=== PATIENT | male | born 1970 | race African-American/Black ===

== ENCOUNTER 2018-05-10 14:07 | Observation (INO) | payer OTHER ==
[~2018-05-10 14:07] MED LIST: CEFAZOLIN 1 GM INJ; ONDANSETRON 4 MG INJ
[2018-05-10] MEDS ORDERED: FENTAnyl 50 MCG/ML VIAL ×2 (14:46→18:04)
[2018-05-10] MEDS ORDERED: MIDAZOLAM 1 MG/ML 2 ML INJ (14:47)
[2018-05-10] MEDS ORDERED: METOCLOPRAMIDE 10 MG INJ (14:47)
[2018-05-10 15:31] LABS: ANION GAP 11 (8-16); BLOOD UREA NITROGEN 13 mg/dl (7-20); CARBON DIOXIDE 25 mmol/L (21-31); CHLORIDE 110 mmol/L (97-110); CREATININE 0.95 mg/dl (0.61-1.24); GLUCOSE 86 mg/dl (70-220); POTASSIUM 3.8 mmol/L (3.5-5.1); SODIUM 142 mmol/L (135-144)
[2018-05-10] MEDS: POLYMYXIN/BACITRACIN 1L IRRIG IRR (17:08)
[2018-05-10] MEDS ORDERED: HYDROmorphONE 2 MG/ML SYG (18:30)
[2018-05-10] MEDS ORDERED: PROPOFOL 40 ML (19:46)
[2018-05-10] MEDS ORDERED: ROCURONIUM 50 MG INJ (19:47)
[2018-05-10] MEDS ORDERED: LIDOCAINE 2% (SDV) 5 ML INJ (19:47)
[2018-05-10] MEDS ORDERED: SUCCINYLCHOLINE CHLORIDE 100 MG/5 ML SYG IV (19:47)
[2018-05-10] MEDS ORDERED: ROPIVACAINE 0.5 % 30 ML VIAL ×2 (19:47→19:53)
[2018-05-10] MEDS ORDERED: EPINEPHrine 1 MG INJ ×2 (19:50→19:51)
[2018-05-10] MEDS ORDERED: EPINEPHrine 0.1 MG/ML SYG (19:50)
[2018-05-10] MEDS ORDERED: SUGAMMADEX SODIUM 200 MG/2 ML VIAL IV (21:05)
[2018-05-10] MEDS ORDERED: LEVALBUTEROL (NEB) 1.25 MG/0.5 ML AMP (21:14)
[2018-05-10] MEDS ORDERED: NACL 0.9% 3 ML SYG IV (21:30)
[2018-05-10] MEDS ORDERED: morphine 2 MG INJ IV (21:30)
[2018-05-10] MEDS ORDERED: HYDROCODONE/APAP (5/325) TAB PO (21:30)
[2018-05-10] MEDS ORDERED: ONDANSETRON 4 MG INJ IV (21:30)
[2018-05-10] MEDS ORDERED: LABETALOL HCL 20MG INJ (21:43)
[2018-05-10] MEDS ORDERED: HYDROmorphONE 1 MG/5 ML IV SYRINGE IV ×3 (22:00)
[2018-05-10] MEDS ORDERED: PROCHLORPERAZINE 10 MG INJ IV (22:00)
[2018-05-10] MEDS ORDERED: hydrALAzine 20 MG INJ IV (22:00)
[2018-05-10] MEDS ORDERED: MEPERIDINE 25 MG INJ IV (22:00)
[2018-05-10] MEDS ORDERED: FENTAnyl 50 MCG/ML VIAL IV ×2 (22:00)
[2018-05-10] MEDS ORDERED: MIDAZOLAM 1 MG/ML 2 ML INJ IV (22:00)
[2018-05-10] MEDS ORDERED: CEFAZOLIN 2 GM/50 ML (PMX) 50 ML IVPB (22:00)
[2018-05-10] MEDS ORDERED: METOCLOPRAMIDE 10 MG INJ IV (22:00)
[2018-05-10] MEDS ORDERED: LEVALBUTEROL (NEB) 1.25 MG/0.5 ML AMP HHN (22:00)
[2018-05-10] MEDS ORDERED: DIPHENHYDRAMINE 50 MG INJ IV (22:00)
[2018-05-10] MEDS: HEPARIN 5,000 UNIT/0.5 ML VIAL SC ×2 (22:00→23:45)
[2018-05-10] MEDS ORDERED: LORAZEPAM 2 MG INJ IV (22:00)
[2018-05-10] MEDS: ONDANSETRON 4 MG INJ IV (22:09)
[2018-05-10] MEDS: LABETALOL HCL 20MG INJ IV (22:09)
[2018-05-10] MEDS: LEVALBUTEROL (NEB) 1.25 MG/0.5 ML AMP HHN (22:14)
[2018-05-10] MEDS: IPRATROPIUM (NEB) 0.5 MG/2.5 ML AMP HHN (22:14)
[2018-05-10] MEDS: LACTATED RINGER'S 1,000 ML IV (23:38)
[2018-05-10] MEDS: HYDROCODONE/APAP (5/325) TAB PO (23:39)
[2018-05-10] MEDS: METOCLOPRAMIDE 10 MG INJ IV (23:52)
[2018-05-11] MEDS: CEFAZOLIN 2 GM/50 ML (PMX) 50 ML IVPB ×3 (01:14→16:17)
[2018-05-11] MEDS ORDERED: CEFAZOLIN 1 GM/50 ML (PMX) 50 ML IVPB (05:00)
[2018-05-11 05:08] LABS: ADD MAN DIFF? NO; BASOPHILS % 0.2 % (0.0-2.0); EOSINOPHILS % 0.2 % (0.0-7.0); HEMATOCRIT 39.7 % (42.0-52.0); HEMOGLOBIN 12.9 g/dl (14.0-18.0); LYMPHOCYTES # 1.1 10^3/ul (0.8-2.9); LYMPHOCYTES % 9.7 % (15.0-51.0); MEAN CORPUSCULAR HEMOGLOBIN 29.1 pg (29.0-33.0); MEAN CORPUSCULAR HGB CONC 32.5 g/dl (32.0-37.0); MEAN CORPUSCULAR VOLUME 89.4 fl (82.0-101.0); MEAN PLATELET VOLUME 9.5 fl (7.4-10.4); MONOCYTE # 0.8 10^3/ul (0.3-0.9); MONOCYTES % 7.6 % (0.0-11.0); NEUTROPHILS % 81.9 % (39.0-77.0); PLATELET COUNT 241 10^3/UL (140-415); RED BLOOD COUNT 4.44 10^6/ul (4.70-6.10); RED CELL DISTRIBUTION WIDTH 14.9 % (11.5-14.5)
[2018-05-11 05:08] LABS: WHITE BLOOD COUNT 10.9 10^3/ul (4.8-10.8)
[2018-05-11 05:30] LABS: HEMOGLOBIN A1C 5.4 % (0-5.9)
[2018-05-11 05:42] LABS: ALANINE AMINOTRANSFERASE 24 IU/L (13-69); ALBUMIN 3.1 g/dl (3.3-4.9); ALBUMIN/GLOBULIN RATIO 0.88; ALKALINE PHOSPHATASE 56 IU/L (42-121); ANION GAP 10 (8-16); ASPARTATE AMINO TRANSFERASE 19 IU/L (15-46); BILIRUBIN,INDIRECT 0.6 mg/dl (0-1.1); BILIRUBIN,TOTAL 0.6 mg/dl (0.2-1.3); BLOOD UREA NITROGEN 11 mg/dl (7-20); CALCIUM 8.6 mg/dl (8.4-10.2); CARBON DIOXIDE 29 mmol/L (21-31); CHLORIDE 106 mmol/L (97-110); CREATININE 0.97 mg/dl (0.61-1.24); GLUCOSE 114 mg/dl (70-220); SODIUM 141 mmol/L (135-144); TOTAL PROTEIN 6.6 g/dl (6.1-8.1)
[2018-05-11] MEDS: HEPARIN 5,000 UNIT/0.5 ML VIAL SC ×3 (06:14→21:56)
[2018-05-11] MEDS: FAMOTIDINE 20 MG TAB PO ×2 (08:55→20:47)
[2018-05-11] MEDS: morphine 2 MG INJ IV ×4 (08:58→22:50)
[2018-05-11] MEDS: ONDANSETRON 4 MG INJ IV ×3 (09:57→22:50)
[2018-05-11] MEDS: HYDROCODONE/APAP (5/325) TAB PO ×3 (11:48→20:47)
[2018-05-11] MEDS: METOCLOPRAMIDE 10 MG INJ IV (12:59)
[2018-05-11] MEDS: LACTATED RINGER'S 1,000 ML IV (15:30)
[2018-05-12] MEDS: HYDROCODONE/APAP (5/325) TAB PO ×4 (01:00→14:23)
[2018-05-12] MEDS: CEFAZOLIN 2 GM/50 ML (PMX) 50 ML IVPB ×2 (01:27→08:27)
[2018-05-12] MEDS: morphine 2 MG INJ IV (03:10)
[2018-05-12] MEDS: HEPARIN 5,000 UNIT/0.5 ML VIAL SC ×2 (05:43→14:21)
[2018-05-12] MEDS: HYDROmorphONE 0.5 MG/0.5 ML SYG IV ×2 (06:00→12:06)
[2018-05-12] MEDS: FAMOTIDINE 20 MG TAB PO (08:27)
[2018-05-12] MEDS: INFLUENZA VIRUS VACCINE 0.5 ML (DISPENSING) IM* (09:00)
[2018-05-12] MEDS: ONDANSETRON 4 MG INJ IV (12:06)
== END 2018-05-12 14:45 ==
LOC: SDS 14:07 → REC 22:27 → MS1 22:50
DX: M19.071 Primary osteoarthritis, right ankle and foot (principal); M21.171 Varus deformity, not elsewhere classified, right ankle; E66.9 Obesity, unspecified; Z68.31 Body mass index [BMI] 31.0-31.9, adult
CPT/HCPCS: 27870; 73610-RT; 80048; 80053; 83036; 84443; 85025; 90686; 94664; 97116; 97161; 97530

== ENCOUNTER 2018-05-12 14:56 | Inpatient (IN) | payer OTHER ==
[2018-05-12] MEDS ORDERED: PENDING SANTYL ORDER FOR WOUND CARE XX (16:00)
[2018-05-12] MEDS ORDERED: CEFAZOLIN 1 GM INJ IM (16:00)
[2018-05-12] MEDS ORDERED: HYDROCODONE/APAP (5/325) TAB PO (16:00)
[2018-05-12] MEDS ORDERED: ONDANSETRON 4 MG INJ IV (16:00)
[2018-05-12] MEDS ORDERED: METOCLOPRAMIDE 10 MG INJ IV (16:00)
[2018-05-12] MEDS: HYDROCODONE/APAP (5/325) TAB PO (16:53)
[2018-05-12 17:01] LABS: ADD UMIC NO; UR ASCORBIC ACID NEGATIVE (NEGATIVE); UR BILIRUBIN (Dip) NEGATIVE (NEGATIVE); UR BLOOD (Dip) NEGATIVE (NEGATIVE); UR CLARITY CLEAR (CLEAR); UR COLOR YELLOW (YELLOW); UR GLUCOSE (Dip) NEGATIVE (NEGATIVE); UR KETONES (Dip) TRACE mg/dL (NEGATIVE); UR LEUKOCYTE ESTERASE (Dip) NEGATIVE Leu/ul (NEGATIVE); UR NITRITE (Dip) NEGATIVE (NEGATIVE); UR SPECIFIC GRAVITY (Dip) 1.016 (1.003-1.030); UR TOTAL PROTEIN (Dip) NEGATIVE (NEGATIVE); UR UROBILINOGEN (Dip) 2+ mg/dL (NEGATIVE)
[2018-05-12] MEDS: HYDROmorphONE 0.5 MG/0.5 ML SYG IV ×2 (17:57→21:56)
[2018-05-12] MEDS: CEFAZOLIN 2 GM/50 ML (PMX) 50 ML IVPB (17:58)
[2018-05-12] MEDS ORDERED: ACETAMINOPHEN 325 MG TAB PO (19:30)
[2018-05-12] MEDS: DOCUSATE SODIUM 100 MG CAP PO (21:00)
[2018-05-12] MEDS: SENNA TAB PO (21:00)
[2018-05-12] MEDS: FAMOTIDINE 20 MG TAB PO (21:47)
[2018-05-12] MEDS: HEPARIN 5,000 UNIT/0.5 ML VIAL SC (21:53)
[2018-05-13] MEDS: CEFAZOLIN 2 GM/50 ML (PMX) 50 ML IVPB ×3 (00:23→17:16)
[2018-05-13] MEDS: HYDROCODONE/APAP (5/325) TAB PO ×4 (00:30→19:22)
[2018-05-13] MEDS: HYDROmorphONE 0.5 MG/0.5 ML SYG IV ×4 (03:57→20:35)
[2018-05-13] MEDS: HEPARIN 5,000 UNIT/0.5 ML VIAL SC ×3 (06:30→21:28)
[2018-05-13 07:06] LABS: BASOPHILS % 0.3 % (0.0-2.0); EOSINOPHILS # 0.1 10^3/ul (0.0-0.5); EOSINOPHILS % 0.9 % (0.0-7.0); HEMATOCRIT 36.7 % (42.0-52.0); LYMPHOCYTES # 1.6 10^3/ul (0.8-2.9); LYMPHOCYTES % 16.7 % (15.0-51.0); MEAN CORPUSCULAR HEMOGLOBIN 29.1 pg (29.0-33.0); MEAN CORPUSCULAR HGB CONC 32.7 g/dl (32.0-37.0); MEAN CORPUSCULAR VOLUME 88.9 fl (82.0-101.0); MEAN PLATELET VOLUME 9.7 fl (7.4-10.4); MONOCYTES % 9.9 % (0.0-11.0); NEUTROPHIL # 6.9 10^3/ul (1.6-7.5); NEUTROPHILS % 71.7 % (39.0-77.0); PLATELET COUNT 301 10^3/UL (140-415); RED BLOOD COUNT 4.13 10^6/ul (4.70-6.10); RED CELL DISTRIBUTION WIDTH 14.6 % (11.5-14.5)
[2018-05-13 07:06] LABS: WHITE BLOOD COUNT 9.6 10^3/ul (4.8-10.8)
[2018-05-13 07:07] LABS: ADD MAN DIFF? NO
[2018-05-13 07:35] LABS: ALANINE AMINOTRANSFERASE 15 IU/L (13-69); ALBUMIN 3.1 g/dl (3.3-4.9); ALBUMIN/GLOBULIN RATIO 0.79; ALKALINE PHOSPHATASE 60 IU/L (42-121); ANION GAP 12 (8-16); ASPARTATE AMINO TRANSFERASE 22 IU/L (15-46); BILIRUBIN,INDIRECT 0.5 mg/dl (0-1.1); BILIRUBIN,TOTAL 0.5 mg/dl (0.2-1.3); BLOOD UREA NITROGEN 6 mg/dl (7-20); CALCIUM 8.7 mg/dl (8.4-10.2); CARBON DIOXIDE 29 mmol/L (21-31); CHLORIDE 103 mmol/L (97-110); CREATININE 0.89 mg/dl (0.61-1.24); GLUCOSE 90 mg/dl (70-220); SODIUM 140 mmol/L (135-144)
[2018-05-13] MEDS: DOCUSATE SODIUM 100 MG CAP PO ×2 (08:31→20:38)
[2018-05-13] MEDS: FAMOTIDINE 20 MG TAB PO ×2 (08:31→20:38)
[2018-05-13 13:31] LABS: HEPATITIS B SURFACE ANTIGEN NEGATIVE (NEGATIVE)
[2018-05-13 13:48] LABS: HEPATITIS C VIRAL ANTIBODY NEGATIVE (NEGATIVE)
[2018-05-13] MEDS: SENNA TAB PO (20:38)
[2018-05-14] MEDS: HYDROmorphONE 0.5 MG/0.5 ML SYG IV ×4 (00:30→20:33)
[2018-05-14] MEDS: CEFAZOLIN 2 GM/50 ML (PMX) 50 ML IVPB ×3 (00:33→16:55)
[2018-05-14] MEDS: HYDROCODONE/APAP (5/325) TAB PO ×2 (01:49→22:50)
[2018-05-14] MEDS: HEPARIN 5,000 UNIT/0.5 ML VIAL SC ×3 (06:30→22:53)
[2018-05-14] MEDS: DOCUSATE SODIUM 100 MG CAP PO ×2 (08:07→20:32)
[2018-05-14] MEDS: FAMOTIDINE 20 MG TAB PO ×2 (08:07→20:33)
[2018-05-14] MEDS: SENNA TAB PO (20:32)
[2018-05-15] MEDS: CEFAZOLIN 2 GM/50 ML (PMX) 50 ML IVPB (01:50)
[2018-05-15] MEDS: HYDROmorphONE 0.5 MG/0.5 ML SYG IV ×4 (04:19→17:51)
[2018-05-15] MEDS: HEPARIN 5,000 UNIT/0.5 ML VIAL SC ×3 (07:06→23:24)
[2018-05-15] MEDS: SOD CHLORIDE 0.9% 100 ML (08:05)
[2018-05-15] MEDS: IOHEXOL 300MG/ML 150 ML BTL (08:06)
[2018-05-15] MEDS: HYDROCODONE/APAP (5/325) TAB PO ×2 (08:16→12:13)
[2018-05-15] MEDS: DOCUSATE SODIUM 100 MG CAP PO ×2 (09:20→20:45)
[2018-05-15] MEDS: FAMOTIDINE 20 MG TAB PO ×2 (09:21→20:45)
[2018-05-15] MEDS: LACTULOSE 30ML CUP PO (09:23)
[2018-05-15] MEDS: SENNA TAB PO (20:45)
[2018-05-16] MEDS: HYDROmorphONE 0.5 MG/0.5 ML SYG IV ×3 (00:17→22:27)
[2018-05-16] MEDS: HYDROCODONE/APAP (5/325) TAB PO ×2 (04:49→16:09)
[2018-05-16] MEDS: HEPARIN 5,000 UNIT/0.5 ML VIAL SC ×3 (06:12→22:26)
[2018-05-16] MEDS: DOCUSATE SODIUM 100 MG CAP PO ×2 (09:43→21:24)
[2018-05-16] MEDS: MAGNESIUM HYDROXIDE 30ML CUP PO (09:44)
[2018-05-16] MEDS: FAMOTIDINE 20 MG TAB PO ×2 (09:44→21:24)
[2018-05-16] MEDS: BISACODYL 10 MG SUPP PR (12:58)
[2018-05-16] MEDS ORDERED: POLYETHYLENE GLYCOL 17 GM PACKET PO (14:00)
[2018-05-16] MEDS: SENNA TAB PO (21:24)
[2018-05-17] MEDS: HEPARIN 5,000 UNIT/0.5 ML VIAL SC ×2 (06:18→14:40)
[2018-05-17] MEDS: HYDROCODONE/APAP (5/325) TAB PO (06:26)
[2018-05-17] MEDS: DOCUSATE SODIUM 100 MG CAP PO ×2 (09:41→20:34)
[2018-05-17] MEDS: FAMOTIDINE 20 MG TAB PO ×2 (09:42→20:34)
[2018-05-17] MEDS: HYDROmorphONE 0.5 MG/0.5 ML SYG IV ×3 (09:44→19:03)
[2018-05-17 14:22] LABS: NIL 0.03 IU/mL; QUANTIFERON(R)-TB GOLD NEGATIVE (NEGATIVE); TB-NIL <0.00 IU/mL
[2018-05-17] MEDS: SENNA TAB PO (20:34)
== END 2018-05-17 21:00 | disposition home health service (06) | DRG 950 ==
LOC: VRC 05-13 19:06
PROC: F08Z1ZZ Dressing Techniques Treatment (ICD-10-PCS; principal; 2018-05-12)
PROC: F08Z0ZZ Bathing/Showering Techniques Treatment (ICD-10-PCS; 2018-05-12)
PROC: F08Z2ZZ Grooming/Personal Hygiene Treatment (ICD-10-PCS; 2018-05-12)
PROC: F07Z5ZZ Bed Mobility Treatment (ICD-10-PCS; 2018-05-12)
PROC: F07Z8ZZ Transfer Training Treatment (ICD-10-PCS; 2018-05-12)
PROC: F07Z9ZZ Gait Training/Functional Ambulation Treatment (ICD-10-PCS; 2018-05-12)
DX: Z48.89 Encounter for other specified surgical aftercare (principal); Z98.1 Arthrodesis status; M17.0 Bilateral primary osteoarthritis of knee; M12.812 Other specific arthropathies, not elsewhere classified, left shoulder; M19.071 Primary osteoarthritis, right ankle and foot; E66.9 Obesity, unspecified; Z68.31 Body mass index [BMI] 31.0-31.9, adult; J43.9 Emphysema, unspecified
CPT/HCPCS: 71270; 73600; 80053; 81003; 85025; 86480; 86803; 87081; 87086; 87340; 90686; 93971; 97110; 97116; 97150; 97163; 97167; 97530; 97535; 97542

== ENCOUNTER 2018-08-30 05:11 | Day surgery (SDC) | payer OTHER ==
[2018-08-30] MEDS ORDERED: MIDAZOLAM 1 MG/ML 2 ML INJ (07:50)
[2018-08-30] MEDS: POLYMYXIN/BACITRACIN 1L IRRIG (08:22)
[2018-08-30] MEDS ORDERED: ETOMIDATE 20 MG INJ (08:38)
[2018-08-30] MEDS ORDERED: LIDOCAINE 2% (SDV) 5 ML INJ (08:38)
[2018-08-30] MEDS ORDERED: PROPOFOL 20 ML (08:38)
[2018-08-30] MEDS ORDERED: CEFAZOLIN 1 GM INJ (08:38)
[2018-08-30] MEDS ORDERED: ONDANSETRON 4 MG INJ (08:39)
[2018-08-30] MEDS ORDERED: METOCLOPRAMIDE 10 MG INJ IV (09:00)
[2018-08-30] MEDS ORDERED: DIPHENHYDRAMINE 50 MG INJ IV (09:00)
[2018-08-30] MEDS ORDERED: FENTAnyl 50 MCG/ML VIAL IV (09:00)
[2018-08-30] MEDS ORDERED: ONDANSETRON 4 MG INJ IV (09:00)
[2018-08-30] MEDS ORDERED: HYDROmorphONE 1 MG/5 ML IV SYRINGE IV (09:00)
[2018-08-30] MEDS: BACITRACIN/POLYMYXIN 28.35 GM OINT TOP (09:08)
[2018-08-30] MEDS: HYDROmorphONE 1 MG/5 ML IV SYRINGE IV (09:20)
[2018-08-30] MEDS ORDERED: LABETALOL HCL 20MG INJ (09:33)
[2018-08-30] MEDS ORDERED: HYDROCODONE/APAP (10/325) TAB PO (10:00)
== END 2018-08-30 11:44 | disposition home or self-care (01) ==
LOC: SDS 05:11
DX: Z47.2 Encounter for removal of internal fixation device (principal); E66.9 Obesity, unspecified; Z68.30 Body mass index [BMI] 30.0-30.9, adult
CPT/HCPCS: 20694; 73620